=== PATIENT | male | born 1955 | race African-American/Black ===

== ENCOUNTER 2022-04-13 21:05 | Emergency (ER) | payer OTHER ==
[~2022-04-13] VITALS: Ht 172.7 cm; Wt 81.6 kg
[2022-04-13 21:55] VITALS: BP 122/78
--- NOTE | 2022-04-13 22:02 | NUR ---
Frederic chan in ED - 04/13/22 at 2246 by AZALEA Patient eloped from facility. DIANA Gallegos notified.
--- NOTE | 2022-04-13 22:02 | NUR ---
PT LEFT AFTER BEING TRIAGED. DR. REED DO AWARE.
--- NOTE | 2022-04-13 22:03 | NUR ---
PT ambulatory with a steady gait
[2022-04-14] MEDS ORDERED: VANCOMYCIN 1 GM VIAL ONE (19:10)
[2022-04-14] MEDS ORDERED: LORAZEPAM INJ 2 MG/ML VIAL ONE (19:11)
[2022-04-14] MEDS ORDERED: PIPERACILLIN /TAZOBACTAM 3.375 G VIAL IV ONE (19:11)
== END 2022-04-13 22:05 | disposition left against medical advice (07) ==
LOC: ER 21:10
DX: R42 Dizziness and giddiness (principal); F10.10 Alcohol abuse, uncomplicated; I10 Essential (primary) hypertension
CPT/HCPCS: J2060; J2543; J3370

== ENCOUNTER 2022-04-14 15:51 | Inpatient (IN) | payer OTHER ==
[~2022-04-14] VITALS: Ht 188 cm; Wt 62.1 kg
[2022-04-14] MEDS ORDERED: IV NS 0.9% 1,000 ML BAG IV ONE (16:30)
[2022-04-14 17:23] LABS: HEMATOCRIT 21 % (39-51); LYMPHOCYTES # (AUTO) 0.2 K/uL (0.8-4.8); LYMPHOCYTES % (AUTO) 1.6 % (20.0-44.0); MEAN CORPUSCULAR HGB CONC 33 g/dl (31.0-36.0); MEAN CORPUSCULAR VOLUME 82 fL (80-96); MONOCYTES # (AUTO) 0.3 K/uL (0.1-1.30); MONOCYTES % (AUTO) 3.3 % (2.0-12.0); NEUTROPHILS # (AUTO) 9.9 K/uL (1.8-8.9); NEUTROPHILS % (AUTO) 95.1 % (43.0-81.0); PLATELET COUNT (AUTO) 91 K/uL (150-450); RED BLOOD CELL COUNT(AUTO) 2.58 MIL/uL (4.5-6.0); WHITE BLOOD COUNT (AUTO) 10.4 K/uL (4.3-11.0)
[2022-04-14] MEDS ORDERED: D5W IV ONE ×2 (17:30)
[2022-04-14] MEDS ORDERED: THIAMINE IV ONE ×2 (17:30)
[2022-04-14] MEDS ORDERED: Thiamine 500 MG in IV D5W 250 ML IV ONE ×2 (17:30→18:00)
[2022-04-14 17:31] LABS: HEMOGLOBIN 6.9 g/dL (13.5-17.5)
[2022-04-14 17:57] LABS: BAND % (MANUAL) 39 % (0.0-5.0); LYMPHOCYTES % (MANUAL) 3 % (16-48); MONOCYTES % (MANUAL) 4 % (0-11.0); NEUTROPHILS % (MANUAL) 47 (42-76)
[2022-04-14 17:58] LABS: METAMYELOCYTES % 5 % (0-0); MYELOCYTES % 2 % (0-0)
[2022-04-14 18:11] LABS: CALCIUM, SERUM 9.3 mg/dL (8.5-10.1); CARBON DIOXIDE 19 mmol/L (21-32); CHLORIDE 104 mmol/L (98-107); GLUCOSE 123 mg/dL (74-106); POTASSIUM 4.3 mmol/L (3.5-5.1); SODIUM SERUM 137 mmol/L (136-145); UREA NITROGEN, BLOOD 63 mg/dL (7-18)
[2022-04-14] MEDS ORDERED: LORAZEPAM INJ 2 MG/ML VIAL IV ONE (19:00)
[2022-04-14] MEDS ORDERED: PIPERACILLIN /TAZOBACTAM 3.375 G in IV D5W 50 ML IV ONE (19:00)
[2022-04-14] MEDS ORDERED: VANCOMYCIN 1 GM in IV D5W 250 ML IV ONE (19:00)
[2022-04-14 19:45] LABS: ALANINE AMINOTRANSFERASE 21 U/L (12-78); ALBUMIN 2.9 g/dL (3.4-5.0); ALKALINE PHOSPHATASE 69 U/L (46-116); ASPARTATE AMINOTRANSFERASE 35 U/L (15-37); BILIRUBIN,DIRECT 0.2 mg/dL (0.0-0.2); BILIRUBIN,TOTAL 0.7 mg/dL (0.2-1.0); LIPASE 68 U/L (73-393); TOTAL PROTEIN, SERUM 9.9 g/dL (6.4-8.2)
[2022-04-14] MEDS ORDERED: ONDANSETRON HCL/PF 4 MG/2 ML VIAL IVP PRN (23:00)
[2022-04-14] MEDS ORDERED: TEMAZEPAM 15 MG CAPSULE PO PRN (23:00)
[2022-04-14] MEDS ORDERED: IV NS 0.9% 1,000 ML IV PRN (23:00)
[2022-04-14] MEDS ORDERED: MAG HYDROX/AL HYDROX/SIMETH 30 ML UDC PO PRN (23:00)
[2022-04-14] MEDS ORDERED: LORAZEPAM INJ 2 MG/ML VIAL IV PRN (23:00)
[2022-04-14] MEDS ORDERED: MAGNESIUM HYDROXIDE 30 ML UDC PO PRN (23:00)
[2022-04-14] MEDS ORDERED: ACETAMINOPHEN 325 MG TABLET PO PRN (23:00)
[2022-04-14] MEDS ORDERED: Z GUARD REMEDY 4 OZ OINT TP PRN (23:00)
[2022-04-15] VITALS: BP 131/71
[2022-04-15] MEDS ORDERED: PIPERACILLIN /TAZOBACTAM 2.25 G VIAL IV ONE (00:41)
[2022-04-15] MEDS ORDERED: PIPERACILLIN /TAZOBACTAM 2.25 G in IV D5W 50 ML IV ONE (02:00)
[2022-04-15 04:00] VITALS: BP 127/74
[2022-04-15 07:05] LABS: BASOPHILS % (AUTO) 0.1 % (0.0-2.0); HEMATOCRIT 23 % (39-51); HEMOGLOBIN 7.4 g/dL (13.5-17.5); LYMPHOCYTES # (AUTO) 0.5 K/uL (0.8-4.8); LYMPHOCYTES % (AUTO) 6.5 % (20.0-44.0); MEAN CORPUSCULAR HGB CONC 32 g/dl (31.0-36.0); MEAN CORPUSCULAR VOLUME 86 fL (80-96); MONOCYTES # (AUTO) 0.7 K/uL (0.1-1.30); MONOCYTES % (AUTO) 8.7 % (2.0-12.0); NEUTROPHILS # (AUTO) 7.1 K/uL (1.8-8.9); NEUTROPHILS % (AUTO) 84.7 % (43.0-81.0); PLATELET COUNT (AUTO) 85 K/uL (150-450); RED BLOOD CELL COUNT(AUTO) 2.67 MIL/uL (4.5-6.0); WHITE BLOOD COUNT (AUTO) 8.4 K/uL (4.3-11.0)
[2022-04-15 07:19] LABS: CALCIUM, SERUM 8.5 mg/dL (8.5-10.1); CREATININE 2.8 mg/dL (0.6-1.3); MAGNESIUM 1.5 mg/dL (1.8-2.4); PHOSPHORUS 4.2 mg/dL (2.5-4.9); POTASSIUM 3.7 mmol/L (3.5-5.1)
[2022-04-15 07:59] LABS: THYROID STIMULATING HORMONE 1.367 uIU/mL (0.358-3.74)
[2022-04-15 08:00] VITALS: BP 145/61
[2022-04-15] MEDS: ENSURE ENLIVE 237 ML LIQUID (VANILLA) PO SCH ×3 (08:14→17:20)
[2022-04-15] MEDS: PANTOPRAZOLE 40 MG VIAL IV SCH ×2 (08:16→21:19)
[2022-04-15] MEDS: THIAMINE HCL 100 MG TABLET PO SCH (08:16)
[2022-04-15] MEDS ORDERED: Magnesium 1 GM/2 ML VIAL IV ONE (10:00)
[2022-04-15] MEDS: Magnesium 1GM/D5W 100ML PREMIX 100 ML IV SCH ×2 (10:25→11:36)
[2022-04-15] MEDS: PIPERACILLIN /TAZOBACTAM 2.25 G in IV D5W 50 ML IV SCH ×2 (11:38→17:25)
[2022-04-15 12:00] VITALS: BP 127/76
[2022-04-15] MEDS ORDERED: PIPERACILLIN /TAZOBACTAM 2.25 G in IV D5W 50 ML IV SCH (13:00)
[2022-04-15 13:43] LABS: BAND % (MANUAL) 25 % (0.0-5.0); BASOPHILS % (MANUAL) 0 % (0.0-2.0); EOSINOPHILS % (MANUAL) 0 % (0-4); LYMPHOCYTES % (MANUAL) 9 % (16-48); METAMYELOCYTES % 1 % (0-0); MONOCYTES % (MANUAL) 5 % (0-11.0); MYELOCYTES % 1 % (0-0); NEUTROPHILS % (MANUAL) 59 (42-76)
[2022-04-15 16:00] VITALS: BP 132/69
[2022-04-15] MEDS: IV NS 0.9% 1,000 ML IV PRN (17:57)
[2022-04-15] MEDS ORDERED: VANCOMYCIN HCL 0.75 GM in IV D5W 250 ML IV SCH (19:00)
[2022-04-15 20:00] VITALS: BP 120/73
[2022-04-16] VITALS (12 sets, daily range): BP systolic 94–133; BP diastolic 63–78
[2022-04-16] MEDS: PIPERACILLIN /TAZOBACTAM 2.25 G in IV D5W 50 ML IV SCH ×4 (00:03→17:06)
[2022-04-16 02:40] LABS: CREATININE, URINE 59.9 MG/DL (30.0-125.0)
[2022-04-16 02:42] LABS: BILIRUBIN,URINE NEGATIVE (NEGATIVE); COLOR,URINE YELLOW (YELLOW); LEUKOCYTE ESTERASE ,URINE NEGATIVE (NEGATIVE); NITRITE, URINE NEGATIVE (NEGATIVE); PH,URINE 5.5 (5.0-8.0); PROTEIN,URINE 1+ mg/dl (NEGATIVE); UGLUCOSE NEGATIVE (NEGATIVE); UROBILINOGEN,URINE 0.2 EU/dL (0.2)
[2022-04-16 02:48] LABS: BACTERIA,URINE Rare /HPF (None Seen); RBC,URINE 21-50 /HPF (0-2); SQUAMOUS EPITHELIAL CELL,UR Few /HPF (None Seen)
[2022-04-16] MEDS: IV NS 0.9% 1,000 ML IV PRN ×2 (06:11→19:07)
[2022-04-16 06:47] LABS: BASOPHILS % (AUTO) 0.1 % (0.0-2.0); EOSINOPHILS % (AUTO) 0.1 % (0.0-6.0); LYMPHOCYTES # (AUTO) 0.9 K/uL (0.8-4.8); LYMPHOCYTES % (AUTO) 10.9 % (20.0-44.0); MEAN CORPUSCULAR HGB CONC 33 g/dl (31.0-36.0); MEAN CORPUSCULAR VOLUME 83 fL (80-96); MONOCYTES # (AUTO) 0.6 K/uL (0.1-1.30); MONOCYTES % (AUTO) 6.8 % (2.0-12.0); NEUTROPHILS # (AUTO) 6.8 K/uL (1.8-8.9); NEUTROPHILS % (AUTO) 82.1 % (43.0-81.0); PLATELET COUNT (AUTO) 90 K/uL (150-450); WHITE BLOOD COUNT (AUTO) 8.3 K/uL (4.3-11.0)
[2022-04-16] MEDS ORDERED: VANCOMYCIN 1 GM in IV D5W 250ml IV SCH (07:00)
[2022-04-16 07:14] LABS: HEMATOCRIT 19 % (39-51); HEMOGLOBIN 6.3 g/dL (13.5-17.5)
[2022-04-16 07:48] LABS: CALCIUM, SERUM 8.4 mg/dL (8.5-10.1); CREATININE 2.7 mg/dL (0.6-1.3); MAGNESIUM 1.8 mg/dL (1.8-2.4); PHOSPHORUS 3.5 mg/dL (2.5-4.9); POTASSIUM 2.9 mmol/L (3.5-5.1)
[2022-04-16] MEDS: PANTOPRAZOLE 40 MG VIAL IV SCH ×2 (08:51→20:14)
[2022-04-16] MEDS: THIAMINE HCL 100 MG TABLET PO SCH (08:51)
[2022-04-16] MEDS: ENSURE ENLIVE 237 ML LIQUID (VANILLA) PO SCH ×3 (08:52→16:43)
[2022-04-16] MEDS: AZITHROMYCIN 250 MG TABLET PO SCH (15:45)
[2022-04-16] MEDS ORDERED: POTASSIUM CHLORIDE 20 MEQ TAB.PRT.SR PO ONE (17:00)
[2022-04-17] VITALS: BP_SYST 124; BP_SYST 132; BP_DIAS 70; BP_DIAS 85
[2022-04-17] MEDS: PIPERACILLIN /TAZOBACTAM 2.25 G in IV D5W 50 ML IV SCH ×4 (00:07→17:04)
[2022-04-17 04:00] VITALS: BP 158/73
[2022-04-17] MEDS: IV NS 0.9% 1,000 ML IV PRN ×2 (04:40→14:09)
[2022-04-17 07:25] LABS: BASOPHILS % (AUTO) 0.3 % (0.0-2.0); EOSINOPHILS % (AUTO) 0.5 % (0.0-6.0); HEMATOCRIT 25 % (39-51); HEMOGLOBIN 8.1 g/dL (13.5-17.5); LYMPHOCYTES # (AUTO) 1.3 K/uL (0.8-4.8); LYMPHOCYTES % (AUTO) 15.3 % (20.0-44.0); MEAN CORPUSCULAR HGB CONC 32 g/dl (31.0-36.0); MEAN CORPUSCULAR VOLUME 85 fL (80-96); MONOCYTES # (AUTO) 0.7 K/uL (0.1-1.30); NEUTROPHILS # (AUTO) 6.5 K/uL (1.8-8.9); NEUTROPHILS % (AUTO) 75.9 % (43.0-81.0); PLATELET COUNT (AUTO) 93 K/uL (150-450); RED BLOOD CELL COUNT(AUTO) 2.97 MIL/uL (4.5-6.0); WHITE BLOOD COUNT (AUTO) 8.5 K/uL (4.3-11.0)
[2022-04-17 07:26] LABS: CALCIUM, SERUM 8.3 mg/dL (8.5-10.1); CREATININE 2.5 mg/dL (0.6-1.3); POTASSIUM 3.3 mmol/L (3.5-5.1)
[2022-04-17 08:00] VITALS: BP 134/77
[2022-04-17] MEDS: ENSURE ENLIVE 237 ML LIQUID (VANILLA) PO SCH ×3 (08:14→16:04)
[2022-04-17] MEDS: NEOMY SULF/BACITRAC ZN/POLY 15 GM TUBE TP SCH (08:14)
[2022-04-17] MEDS: THIAMINE HCL 100 MG TABLET PO SCH (08:17)
[2022-04-17] MEDS: PANTOPRAZOLE 40 MG VIAL IV SCH ×2 (08:17→20:04)
[2022-04-17 10:23] LABS: BAND % (MANUAL) 13 % (0.0-5.0); LYMPHOCYTES % (MANUAL) 25 % (16-48); NEUTROPHILS % (MANUAL) 57 (42-76)
[2022-04-17 10:24] LABS: MONOCYTES % (MANUAL) 5 % (0-11.0)
[2022-04-17 12:00] VITALS: BP 150/78
[2022-04-17] MEDS ORDERED: POTASSIUM CHLORIDE 10 MEQ TABLET.SA PO SCH (12:00)
[2022-04-17] MEDS: MORPHINE SULFATE INJ 2 MG/ML DISP.SYRIN IV PRN ×2 (12:19→20:05)
[2022-04-17] MEDS: AZITHROMYCIN 250 MG TABLET PO SCH (14:37)
[2022-04-17 16:00] VITALS: BP 145/75
[2022-04-17 20:00] VITALS: BP 155/87
[2022-04-18] VITALS: BP 149/85
[2022-04-18] MEDS: PIPERACILLIN /TAZOBACTAM 2.25 G in IV D5W 50 ML IV SCH ×5 (00:40→23:09)
[2022-04-18] MEDS: IV NS 0.9% 1,000 ML IV PRN ×2 (00:48→10:02)
[2022-04-18 04:00] VITALS: BP 157/77
[2022-04-18 07:14] LABS: CALCIUM, SERUM 8.4 mg/dL (8.5-10.1); CREATININE 2.5 mg/dL (0.6-1.3); POTASSIUM 3.2 mmol/L (3.5-5.1)
[2022-04-18 07:15] LABS: BASOPHILS % (AUTO) 0.2 % (0.0-2.0); EOSINOPHILS % (AUTO) 1.9 % (0.0-6.0); HEMATOCRIT 25 % (39-51); HEMOGLOBIN 8.4 g/dL (13.5-17.5); LYMPHOCYTES # (AUTO) 1.2 K/uL (0.8-4.8); LYMPHOCYTES % (AUTO) 12.8 % (20.0-44.0); MEAN CORPUSCULAR HGB CONC 33 g/dl (31.0-36.0); MEAN CORPUSCULAR VOLUME 83 fL (80-96); MONOCYTES # (AUTO) 0.7 K/uL (0.1-1.30); MONOCYTES % (AUTO) 7.5 % (2.0-12.0); NEUTROPHILS # (AUTO) 7.4 K/uL (1.8-8.9); NEUTROPHILS % (AUTO) 77.6 % (43.0-81.0); PLATELET COUNT (AUTO) 95 K/uL (150-450); RED BLOOD CELL COUNT(AUTO) 3.05 MIL/uL (4.5-6.0); WHITE BLOOD COUNT (AUTO) 9.5 K/uL (4.3-11.0)
[2022-04-18] MEDS: ENSURE ENLIVE 237 ML LIQUID (VANILLA) PO SCH ×3 (07:52→17:00)
[2022-04-18 08:00] VITALS: BP 141/81
[2022-04-18] MEDS: NEOMY SULF/BACITRAC ZN/POLY 15 GM TUBE TP SCH (08:02)
[2022-04-18] MEDS: THIAMINE HCL 100 MG TABLET PO SCH (08:02)
[2022-04-18] MEDS: PANTOPRAZOLE 40 MG VIAL IV SCH ×2 (08:02→20:17)
[2022-04-18 08:39] LABS: OCCULT BLOOD STOOL NEGATIVE (NEGATIVE)
[2022-04-18] MEDS: MORPHINE SULFATE INJ 2 MG/ML DISP.SYRIN IV PRN ×3 (09:33→20:16)
[2022-04-18] MEDS ORDERED: POTASSIUM CHLORIDE 10 MEQ TABLET.SA PO ONE (11:00)
[2022-04-18 12:00] VITALS: BP 156/91
[2022-04-18 13:50] LABS: BASOPHILS % (MANUAL) 0 % (0.0-2.0); EOSINOPHILS % (MANUAL) 1 % (0-4); LYMPHOCYTES % (MANUAL) 8 % (16-48); MONOCYTES % (MANUAL) 4 % (0-11.0); NEUTROPHILS % (MANUAL) 87 (42-76)
[2022-04-18] MEDS: AZITHROMYCIN 250 MG TABLET PO SCH (14:07)
[2022-04-18 16:00] VITALS: BP 134/81
[2022-04-18] MEDS: PROSOURCE / PROSTAT (PYXIS) 30 ML UDC PO SCH (17:00)
[2022-04-18 20:00] VITALS: BP 155/90
[2022-04-19] VITALS: BP 164/83
[2022-04-19] MEDS ORDERED: CLONIDINE HCL 0.1 MG TABLET PO PRN (00:30)
[2022-04-19] MEDS: MORPHINE SULFATE INJ 2 MG/ML DISP.SYRIN IV PRN ×2 (00:53→10:10)
[2022-04-19 04:00] VITALS: BP 149/78
[2022-04-19] MEDS: PIPERACILLIN /TAZOBACTAM 2.25 G in IV D5W 50 ML IV SCH ×2 (05:05→11:10)
[2022-04-19 06:44] LABS: BASOPHILS % (AUTO) 0.2 % (0.0-2.0); EOSINOPHILS % (AUTO) 4.1 % (0.0-6.0); HEMATOCRIT 27 % (39-51); HEMOGLOBIN 8.8 g/dL (13.5-17.5); LYMPHOCYTES # (AUTO) 1.4 K/uL (0.8-4.8); LYMPHOCYTES % (AUTO) 17.2 % (20.0-44.0); MEAN CORPUSCULAR HGB CONC 33 g/dl (31.0-36.0); MEAN CORPUSCULAR VOLUME 83 fL (80-96); MONOCYTES % (AUTO) 11.6 % (2.0-12.0); NEUTROPHILS # (AUTO) 5.5 K/uL (1.8-8.9); NEUTROPHILS % (AUTO) 66.9 % (43.0-81.0); PLATELET COUNT (AUTO) 81 K/uL (150-450); WHITE BLOOD COUNT (AUTO) 8.3 K/uL (4.3-11.0)
[2022-04-19 07:13] LABS: CALCIUM, SERUM 8.3 mg/dL (8.5-10.1); CREATININE 2.4 mg/dL (0.6-1.3); POTASSIUM 3.3 mmol/L (3.5-5.1)
[2022-04-19 08:00] VITALS: BP 157/93
[2022-04-19] MEDS: PROSOURCE / PROSTAT (PYXIS) 30 ML UDC PO SCH ×2 (08:00→09:15)
[2022-04-19] MEDS: PANTOPRAZOLE 40 MG VIAL IV SCH (09:14)
[2022-04-19] MEDS: NEOMY SULF/BACITRAC ZN/POLY 15 GM TUBE TP SCH (09:14)
[2022-04-19] MEDS: THIAMINE HCL 100 MG TABLET PO SCH (09:14)
[2022-04-19] MEDS: ENSURE ENLIVE 237 ML LIQUID (VANILLA) PO SCH ×2 (09:15→12:06)
[2022-04-19] MEDS ORDERED: POTASSIUM CHLORIDE 20 MEQ TAB.PRT.SR PO SCH (10:30)
[2022-04-19 12:00] VITALS: BP 149/90
[2022-04-19 16:52] LABS: LYMPHOCYTES % (MANUAL) 20 % (16-48); NEUTROPHILS % (MANUAL) 66 (42-76)
[2022-04-19 16:53] LABS: EOSINOPHILS % (MANUAL) 4 % (0-4); MONOCYTES % (MANUAL) 10 % (0-11.0)
== END 2022-04-19 15:44 | DRG 720 ==
LOC: ER 15:55 → TELE-TD 22:26 → TELE1 04-15 00:25
PROVIDERS: ADMIT Nurse Practitioner Acute Care; ATTEND Nurse Practitioner Acute Care
PROC: 30233N1 Transfusion of Nonautologous Red Blood Cells into Peripheral Vein, Percutaneous Approach (ICD-10-PCS; principal; 2022-04-14)
DX: A41.9 Sepsis, unspecified organism (principal); N17.0 Acute kidney failure with tubular necrosis; J69.0 Pneumonitis due to inhalation of food and vomit; G92.8 Other toxic encephalopathy; L89.156 Pressure-induced deep tissue damage of sacral region; J15.6 Pneumonia due to other Gram-negative bacteria; L89.626 Pressure-induced deep tissue damage of left heel; J15.9 Unspecified bacterial pneumonia; F29 Unspecified psychosis not due to a substance or known physiological condition; D63.8 Anemia in other chronic diseases classified elsewhere; K92.2 Gastrointestinal hemorrhage, unspecified; M62.82 Rhabdomyolysis; E11.22 Type 2 diabetes mellitus with diabetic chronic kidney disease; D72.825 Bandemia; I12.9 Hypertensive chronic kidney disease with stage 1 through stage 4 chronic kidney disease, or unspecified chronic kidney disease; N18.9 Chronic kidney disease, unspecified; Z20.822 Contact with and (suspected) exposure to COVID-19; Z59.00 Homelessness unspecified; D50.9 Iron deficiency anemia, unspecified; R68.0 Hypothermia, not associated with low environmental temperature; E83.42 Hypomagnesemia; E87.6 Hypokalemia; F10.10 Alcohol abuse, uncomplicated; Y90.9 Presence of alcohol in blood, level not specified; N28.1 Cyst of kidney, acquired; S91.102A Unspecified open wound of left great toe without damage to nail, initial encounter; X58.XXXA Exposure to other specified factors, initial encounter; Y92.9 Unspecified place or not applicable
CPT/HCPCS: 36415; 70450-TC; 71045-TC; 76770-TC; 80048-TC; 80076-TC; 80202-TC; 81001; 82272-TC; 82550-TC; 82553; 82570-TC; 82962-TC; 83690-TC; 83735-TC; 84100-TC; 84300-TC; 84443-TC; 84484-TC; 85025-TC; 85730-TC; 86850-TC; 87040-TC; 87081-TC; 92526; 92611-TC; 93307-TC; 97116-TC; 97530-TC; A4217; A4223; C9113; C9803; G0378; J2270; J2543; J3370; J3411; J3475; J7030; J7040; J7050; J7060; P9016